=== PATIENT | female | born 1990 | race Caucasian/White ===

== ENCOUNTER 2021-10-31 17:52 | Emergency (ER) | payer OTHER ==
[~2021-10-31] VITALS: Ht 182.9 cm; Wt 96.2 kg
--- NOTE | 2021-10-31 18:10 | NUR ---
PT CAME FROM HOME WITH CC OF SHARP CHEST PAIN, RADIATING TO THE UPPER BACK, NONPROVOKED. IN NAD, VSS, AAOx3, TO BE FURTHER ASSESSED BY ED
[2021-10-31 18:12] VITALS: BP_SYST 128
--- NOTE | 2021-10-31 18:15 | NUR ---
Assessed patient at bedside. Pt stable vital signs.
--- NOTE | 2021-10-31 18:20 | NUR ---
MD at bedside to assess.
[2021-10-31] MEDS ORDERED: KETOROLAC TROMETHAMINE 15 MG VIAL IVP ONE (19:00)
[2021-10-31 19:03] LABS: BASOPHILS # (AUTO) 0.2 K/uL (0.0-0.2); BASOPHILS % (AUTO) 2.2 % (0.0-2.0); EOSINOPHILS # (AUTO) 0.1 K/uL (0.0-0.4); EOSINOPHILS % (AUTO) 1.6 % (0.0-4.0); HEMATOCRIT 37.4 % (36-48); HEMOGLOBIN 12.5 g/dL (12.0-16.0); LYMPHOCYTES # (AUTO) 1.6 K/uL (1.0-5.5); LYMPHOCYTES % (AUTO) 23.4 % (20.5-51.5); MEAN CORPUSCULAR HEMOGLOBIN 29 pg (27-31); MEAN CORPUSCULAR HGB CONC 34 % (32-36); MEAN CORPUSCULAR VOLUME 86 fL (79.0-98.0); MONOCYTES # (AUTO) 0.5 K/uL (0.0-1.0); MONOCYTES % (AUTO) 7.6 % (1.7-9.3); NEUTROPHILS # (AUTO) 4.5 K/uL (1.8-7.7); NEUTROPHILS % (AUTO) 65.2 % (40.0-70.0); PLATELET COUNT (AUTO) 272 K/uL (130-430); RED BLOOD CELL COUNT(AUTO) 4.33 MIL/uL (4.2-6.2); RED CELL DISTRIBUTION WIDTH 13.7 % (9.0-15.0)
[2021-10-31 19:12] LABS: ANION GAP 9 (5-15); CALCIUM 9.5 mg/dL (8.4-11.0); CHLORIDE 101 mmol/L (98-107); CREATININE 0.71 mg/dL (0.55-1.30); GLUCOSE 98 mg/dL (70-99); POTASSIUM 4.2 mmol/L (3.5-5.1); SODIUM SERUM 137 mmol/L (136-145); UREA NITROGEN, BLOOD 14 mg/dL (8-21)
[2021-10-31 19:13] LABS: GFR AFRICAN AMERICAN 122 mL/min (>90)
--- NOTE | 2021-10-31 19:16 | NUR ---
CHANGE OF SHIFT REPORT RECIEVED FROM SUSANA RICHARDS. PT IN BED RESTING EYES OPEN. PT REPORTS CHEST PAIN 7/10 ON THE RIGHT SIDE. AWARE. WILL MONITOR NEEDED. PENDING DISPOSITION
[2021-10-31 19:20] LABS: ALANINE AMINOTRANSFERASE 30 U/L (12-78); ALBUMIN 3.7 g/dL (3.4-4.8); ASPARTATE AMINOTRANSFERASE 25 U/L (10-37); TOTAL BILIRUBIN 0.6 mg/dL (0.0-1.0)
--- NOTE | 2021-10-31 19:49 | NUR ---
PT REPORTS MILD CHEST PAIN ON THE RIGHT SIDE, PT SAT UP IN HIGH FOWER'S POSITION. PT REPORTS FEELING "WORRIED" BECAUSE SHE NEVER EXPERIENCED PAIN IN HER CHEST. PT VITALS STABLE AT THIS TIME. WILL MONITOR NEEDED
--- NOTE | 2021-10-31 20:34 | NUR ---
AT THE BEDSIDE TO RE EVALUATE PT, ANSWERED ALL QUESTIONS FOR PT. PT PENDING DISPOSITON.
[2021-10-31] MEDS ORDERED: IBUP-1969 PO (20:44)
[2021-10-31 21:45] VITALS: BP_SYST 147
--- NOTE | 2021-10-31 21:48 | NUR ---
PT ADVISED ON DISCHARGE, ALL QUESTIONS ANSWERED. PT ADVISED TO FOLLOW UP WITH PRIMARY CARE DOCTOR IF SYMPTOMS CONTINUE. PT VERBALIZED UNDERSTANDING. IV REMOVED WITH CATHTER INTACT PT PROVIDED WITH [facility] INSTRUCTIONS AND PRESCRIPTION.
== END 2021-10-31 21:36 | disposition home or self-care (01) ==
LOC: EDSEX 17:52 → SED 17:52
DX: R09.1 Pleurisy (principal); R07.81 Pleurodynia; J45.909 Unspecified asthma, uncomplicated; Z79.899 Other long term (current) drug therapy
CPT/HCPCS: 36415; 71045; 80053; 81025; 84484; 85025; 85379; 93005; 96374; 99285; J1885

== ENCOUNTER 2022-03-06 19:46 | Emergency (ER) | payer OTHER ==
[~2022-03-06] VITALS: Ht 182.9 cm; Wt 96.2 kg
[~2022-03-06 19:46] MED LIST: IBUP-1969 PO
[2022-03-06 20:02] VITALS: BP_SYST 133
== END 2022-03-06 20:32 | disposition left against medical advice (07) ==
LOC: SED 19:46
DX: M54.2 Cervicalgia (principal); R07.0 Pain in throat; Z53.21 Procedure and treatment not carried out due to patient leaving prior to being seen by health care provider

== ENCOUNTER 2023-05-30 12:33 | Emergency (ER) | payer OTHER ==
[~2023-05-30] VITALS: Ht 182.9 cm; Wt 99.8 kg
[2023-05-30 12:50] VITALS: BP_SYST 149; PULSE 95; RESP 18; TEMP 98.2; O2SAT 98
[2023-05-30] MEDS ORDERED: TOBR3.5O25 OP (13:14)
[2023-05-30 13:19] VITALS: BP_SYST 149; PULSE 95; RESP 18; TEMP 98.2; O2SAT 98
== END 2023-05-30 13:19 | disposition home or self-care (01) ==
LOC: SED 12:33
DX: T15.81XA Foreign body in other and multiple parts of external eye, right eye, initial encounter (principal); J45.909 Unspecified asthma, uncomplicated; Z88.5 Allergy status to narcotic agent; Z79.899 Other long term (current) drug therapy; W44.8XXA Other foreign body entering into or through a natural orifice, initial encounter; Y93.89 Activity, other specified; Y92.89 Other specified places as the place of occurrence of the external cause; Y99.8 Other external cause status
CPT/HCPCS: 99283